=== PATIENT | female | born 1990 | race Asian ===

== ENCOUNTER 2023-07-05 13:50 | Emergency (ER) | payer MEDICAID, SELFPAY ==
[2023-07-05 13:51] VITALS: BP 130/83; PULSE 108; RESP 16; TEMP 35.7; O2SAT 98; BMI 35.0
--- NOTE | 2023-07-05 15:53 | EX.ED.DYSGE1 ---
HPI History of Present Illness Chief Complaint: Abd Pain PFSH PFSH Home Medications ibuprofen 600 mg tablet 600 mg PO 4X/DAY PRN pain or cramping #30 tabs 04/09/16 [Rx Last Taken Unknown] oxycodone 5 mg tablet 5 - 10 mg (1 - 2 x 5 mg) PO Q4H PRN PRN Mod-Severe Pain (4-10/10) ##30 04/09/16 [Rx Last Taken Unknown] vits,calcium no.78-iron fumarate-folic acid 29 mg-1 mg tablet (Prenatabs FA) 1 tab PO DAILY ##30 04/09/16 [Rx Last Taken Unknown] omeprazole 20 mg capsule,delayed release 20 mg PO DAILY #30 caps 07/05/23 [Rx Last Taken Unknown] ondansetron 4 mg disintegrating tablet 4 mg PO Q8H PRN PRN Nausea #10 tabs 07/05/23 [Rx Last Taken Unknown] Allergy/AdvReac Type Severity Reaction Status Date / Time No Known Allergies Allergy Verified 07/05/23 13:51 Surgical History (Updated 07/05/23 @ 16:05 by Nicolette Bragg) Hx of cholecystectomy Social History Smoking Status: Current some day smoker tobacco type: cigarettes EXAM Physical Exam Const Vital Signs: 07/05/23 13:51 07/05/23 18:00 07/05/23 19:44 Temperature 96.2 F L 97.2 F L Temperature Source Temporal Pulse Rate 108 H 80 Respiratory Rate 16 18 16 Blood Pressure 130/83 H Blood Pressure Mean 98 Pulse Ox 98 Oxygen Delivery Method Room Air Room Air MDM MDM MDM Narrative Medical decision making narrative: HISTORY OF PRESENT ILLNESS: 32 F female presents with epigastric abdominal pain for the last 10 hours. Notes history of cholecystectomy but states this pain feels similar to prior gallbladder pain. Last bowel movement 2 hours prior to arrival. Notes history of hysterectomy and cholecystectomy. Denies any vomiting but notes nausea and epigastric abdominal pain. Denies chest pain or shortness of breath. Denies any bleeding diathesis. Denies any urinary complaints REVIEW OF SYSTEMS: Pertinent positives: Abdominal pain Pertinent negatives: Chest pain, shortness breath, urinary complaint PHYSICAL EXAM: Nursing triage notes reviewed, Vital signs reviewed Constitutional: please see mdm HENT: MMM Eyes: Pupils equal round and reactive to light, Extraocular muscles intact Neck: No stridor, no JVD, full neck ROM Lungs: Clear to auscultation, No wheezing or rales. No increased work of breathing, no conversational dyspnea, no accessory muscle use, no nasal flaring. No respiratory distress noted Heart: Regular rate and rhythm, No murmurs, No rubs and No gallops, 2+ distal pulses (radial, femoral, posterior tibial) in all extremities Abdomen: Soft, epigastric tenderness but no rigidity, distention, rebound or guarding, no obvious peritoneal signs, no palpable pulsatile abdominal masses, no auscultated abdominal bruit : No CVAT Extremities: No edema Neuro: No focal neurological deficits, cranial nerves II through XII intact, 5/5 strength in all extremities. Intact sensation to light touch in all extremities, 2+ reflexes bilateral patella tendons. Normal gait. No ataxia. Skin: No rash or lesions noted MEDICAL DECISION MAKING: Chief Complaint: Abdominal pain External records reviewed: No recent advanced imaging the abdomen or pelvis noted in [facility] Factors affecting care: Status post cholecystectomy Social determinants of health: Denies alcohol use History obtained from others: Patient's friend Consults: none MDM Narrative: Patient denies history hemodynamically stable, mildly tachycardic otherwise afebrile. Abdominal exam is overall benign with no obvious peritoneal signs. She did have epigastric TTP I considered the following differential diagnosis: AAA, small bowel obstruction, abdominal perforation, appendicitis, pancreatitis, hepatobiliary pathology (acute cholecystitis), mesenteric ischemia, pathology (ie nephrolithiasis, pyelonephritis), ACS, pneumonia, Lower suspicion for gallstone pancreatitis or alcohol-induced pancreatitis given lack of having a gallbladder lack of recent alcohol use I did obtain a broad lab workup to further elucidate etiology patient complaints. I gave symptomatic treatment in the form of IV narcotics, IV fluids, Zofran and Pepcid ALL IMAGES (IF OBTAINED) HAVE BEEN PERSONALLY REVIEWED AND INTERPRETED BY MYSELF. CBC with leukocytosis however this is consistent with prior studies, no anemia or thrombocytopenia noted EKG with normal sinus rhythm, normal axis, no intervals, no STEMI BMP without evidence of significant electrolyte abnormalities, no anion gap, no acute kidney injury. LFTs show no evidence of hepatobiliary pathology. High-sensitivity troponin is negative, no evidence of myocardial ischemia Lipase is wnl indicating no pancreatic inflammation. EKG with normal sinus rhythm, normal axis, normal intervals, no ST or T wave changes to suggest ischemia. No evidence of WPW, Brug[place], ARVD. I have personally reviewed the patient's chest x-ray. Chest x-ray is unremarkable for pulmonary edema, pneumothorax, pneumonia or focal cardiopulmonary abnormality. Repeat abdominal exam is benign. Low suspicion for acute life-threatening etiology including gallbladder obstruction, pancreatitis, hepatobiliary obstruction, ACS, perforation, obstruction or other acute surgical pathology of the abdomen. Is no evidence of , ectopic or UTI or pyelonephritis at this time. Patient is poor for outpatient follow-up with instructions to take omeprazole to follow-up with gastroenterology The patient and/or family, caregivers express understanding. The patient and/or family, caregivers agrees with the plan. Shared decision making: I will have a discussion with the patient and or visitors regarding risk/benefits of further testing or admission. They will be made aware of of the risk/benefits inherent in this decision they will be given the opportunity to voice understanding. Total critical care time today provided was at least 0 minutes. This excludes separately billable procedures. Critical care time (if documented) is secondary to the patient having high probability of clinically significant/life threatening deterioration in the patient's condition which required my urgent intervention. Impression: 1. Epigastric abdominal pain 2. Leukocytosis (baseline, stable) Dispo: Discharge home Lab Data Labs: Laboratory Results - last 24 hr 07/05/23 07/05/23 16:00 16:34 WBC 11.9 H RBC 5.05 Hgb 15.4 H Hct 45.8 MCV 90.7 MCH 30.5 MCHC 33.6 RDW Std Deviation 36.4 RDW Coeff of Swetha 11.0 L Plt Count 223 MPV 10.7 Immature Gran % (Auto) 0.300 Neut % (Auto) 89.0 H Lymph % (Auto) 4.9 L [place] % (Auto) 4.7 Eos % (Auto) 0.6 Baso % (Auto) 0.5 Absolute Neuts (auto) 10.6 H Absolute Lymphs (auto) 0.59 L Nucleated RBC % 0 Differential Comment SCANNED Sodium 139 Potassium 3.9 Chloride 107 Carbon Dioxide 24.0 Anion Gap 8 BUN 15 Creatinine 0.80 Estim Creat Clear Calc 109.32 Est GFR (MDRD) Af Amer 106 Est GFR (MDRD) Non-Af 88 BUN/Creatinine Ratio 18.8 Glucose 107 H Calcium 8.7 Total Bilirubin 0.80 Direct Bilirubin 0.27 AST 31 ALT 65 H Alkaline Phosphatase 86 Troponin I High Sens 3 Total Protein 8.0 Albumin 3.6 Globulin 4.4 H Lipase 25 Urine Color Yellow Urine Clarity Clear Urine pH 5.0 Ur Specific Newborn 1.020 Urine Protein 30 H Urine Glucose (UA) Normal Urine Ketones 5 H Urine Occult Blood 25 H Urine Nitrite Negative Urine Bilirubin 1 H Urine Urobilinogen Normal Ur Leukocyte Esterase 25 H Urine RBC 0-5 SEEN Urine WBC 0-5 SEEN Ur Squamous Epith Cells 0-5 SEEN Urine Bacteria 0 SEEN Urine Mucus 0 SEEN Urine Test Negative Radiography Diagnostic Testing: Clinical Impression(s) from Imaging Studies Chest X-Ray 07/05/23 16:22 IMPRESSION: No acute cardiopulmonary disease. Electronically Signed: Kenna Cline MD at 16:52 EST , Discharge Plan Triage Chief Complaint: Abd Pain ED Provider: Prashanth León Dx/Rx/DC Orders Instructions: ED Abdominal Pain Unkn Cause Fem Prescriptions: New omeprazole 20 mg capsule,delayed release(DR/EC) 20 mg PO DAILY Qty: 30 0RF ondansetron 4 mg tablet,disintegrating 4 mg PO Q8H PRN PRN (Reason: Nausea) Qty: 10 0RF No Action oxycodone 5 MG tablet 5 - 10 mg PO Q4H PRN PRN (Reason: Mod-Severe Pain (4-10/10)) Qty: 30 0RF [id number] [Prenatabs FA] 1 TABLET tablet 1 tab PO DAILY Qty: 30 6RF ibuprofen 600 MG tablet 600 mg PO 4X/DAY PRN (Reason: pain or cramping) Qty: 30 2RF Primary Care Provider: Trae Paul Referrals: Trae Paul MD [Primary Care Provider] - Friend,DO Teodoro [Med Staff - Active Staff] - Activity Restrictions/Additional Instructions: Thank you for trusting us with your care today! Please take Tylenol (2 pills, 650 mg), ibuprofen (2 pills, 400 mg) every 6 hours as needed for pain and fever control. Please take Prilosec as prescribed. Please take Zofran as needed for nausea and vomiting Please return to the emergency department if your symptoms change or worsen. Please follow with your primary care physician for further outpatient evaluation and management. Disposition Disposition: Home, Self Care Discharge Date/Time: 07/05/23 19:50 Capacity Legal [employer] Operator Reflex Medical hold order details:: IF a medical hold is selected below, a suggested order for a MEDICAL HOLD will reflex upon signing the document. Next of kin: [place] law dictates a PRIORITY LIST for identifying legal decision-maker/legal next of kin in the following order (LNOK): 1st: The patient?s legal guardian, if any 2nd: The patient's spouse (if status is questionable, consult Risk Management) 3rd: The patient?s adult child(wesley) (majority, if multiple children) 4th: The patient?s parents 5th: The patient?s adult siblings (majority, if multiple children siblings)
--- NOTE | 2023-07-05 16:22 | RAD_ITS ---
STUDY: X-RAY CHEST REASON FOR EXAM: Female, 32 years old. epigastric abdominal pain TECHNIQUE: Single AP portable view of the chest. COMPARISON: None. FINDINGS: The lungs are clear and expanded. There is no demonstrated pleural abnormality. Normal size heart. Normal mediastinum and davon. Normal visualized pulmonary arteries. Normal visualized aortic arch and descending thoracic aorta. Scoliosis of thoracic spine with convexity to the right. Normal visualized ribs, clavicles, and shoulders. There is no demonstrated abnormality of the visualized soft tissue structures of the upper abdomen. RAD/Chest 1 View (Portable) IMPRESSION: No acute cardiopulmonary disease. Electronically Signed: Kenna Cline MD at 16:52 EST ,
--- NOTE | 2023-07-05 16:22 | EKG12_ITS ---
Test Reason : ABN LABS Blood Pressure : / mmHG Vent. Rate : 080 BPM Atrial Rate : 080 BPM P-R Int : 130 ms QRS Dur : 084 ms QT Int : 366 ms P-R-T Axes : 046 076 050 degrees QTc Int : 422 ms Normal sinus rhythm Normal ECG Confirmed by LAUREN DORSEY, IQRA ([id number]), assignment desk editor [facility] ([id number]) on 07/07/2023 9:18:55 AM Referred By: Confirmed By:IQRA AGUILAR MD
--- NOTE | 2023-07-05 16:24 | NURSING ---
NO OLD EKGS
[2023-07-05 16:38] LABS: Absolute Lymphocyte Count 0.59 X10^3/uL (0.83-4.51); Absolute Neutrophil Count 10.6 X10^3/uL (2.0-7.7); Basophil# 0.06 X10^3/uL; Basophil% 0.5 % (0-1); Eosinophil# 0.07 X10^3/uL; Eosinophils% 0.6 % (0-5); Hematocrit 45.8 % (37-47); Hemoglobin 15.4 g/dL (12.0-15.0); Lymphocyte # 0.59 X10^3/ul (0.83-4.51); Lymphocyte % 4.9 % (19-41); Mean Corp Hgb Conc 33.6 g/dL (32-36); Mean Corpuscular Hgb 30.5 pg (27.0-32.0); Mean Corpuscular Volume 90.7 fL (81-99); Mean Platelet Vol. 10.7 fl (6.2-12.0); Monocyte# 0.56 X10^3/uL; Monocyte% 4.7 % (0-10); NRBC Flagged by Analyzer 0 % (0-5); Neutrophil # 10.62 X10^3/uL (2.7-7.7); POSITIVE DIFFERENTIAL YES; Platelet Count 223 K/mm3 (150-450); RBC Distribution Width SD 36.4 fl (35.1-43.9); Red Blood Count 5.05 M/mm3 (4.2-5.4); White Blood Count 11.9 K/mm3 (4.4-11.0)
[2023-07-05] MEDS: 0.9% Normal Saline (1000mL) 1,000 ML 1000 ML IV (16:38)
[2023-07-05] MEDS: Ondansetron 4 MG/2 ML Vial IV (16:38)
[2023-07-05] MEDS: Morphine 4 MG/ML Syringe IV (16:38)
[2023-07-05 16:42] LABS: Bacteria 0 SEEN /hpf (None Seen); Mucous, Urine 0 SEEN /hpf (<or=2+)
--- OUTSIDE RECORDS SUMMARY | 2023-07-05 16:42 | XMS RPT_ITS | CCD ---
Author Name Unknown Address [address] [place] [address] Organization [facility] Care Team Providers Care Power Supply Engineer Name Role Phone Mikael Paul MD Primary Care Provider MIKAEL PAUL Attending MIKAEL Bach Primary Care UnavailMARKY Carrera Attending MIKAEL Chandler Primary Care UnavailMIKAEL Charles Attending MIKAEL Bach Primary Care Unavailab MARKY Sullivan Referring MIKAEL Chandler Primary Care Unavailab le Medications Current Medications Medication Drug Class(es) Dates Sig (Normalized) Sig (Original) amoxicillin 875 mg / clavulanate 125 mg oral tablet (1 source) Penicillin-class Antibacterial Start: 01-02-2022 End: 01-12-2022 take 1 tablet by mouth twice daily amoxicillin-clav ulanic acid (AUGMENTIN) 875-125 mg per tablet Take 1 tablet by mouth twice daily for 10 days. 20 tablet 0 01/02/2022 01/12/2022 Active Completed/Discontinued Medications Medication Drug Class(es) Dates Sig (Normalized) Sig (Original) Levonorgestrel (9 sources) Progestin, Progestin-containing Intrauterine Device End: 06-23-2022 levonorgestrel (MIRENA INTRAUTERINE) by INTRAUTERINE route. 0 06/23/2022 Discontinued Problems Problem Classification Problem Date Documented Date Episodic/Chronic Attention-deficit, conduct, and disruptive behavior disorders (20 sources) Adult attention deficit hyperactivity disorder ; Translations: [Attention-deficit hyperactivity disorder, unspecified type] Chronic Attention-deficit, conduct, and disruptive behavior disorders (1 source) Attention-deficit hyperactivity disorder, unspecified type; Translations: [Adult ADHD] Onset: 12-28-2022 Chronic Cardiac dysrhythmias (1 source) Tachycardia; Translations: [Tachycardia, unspecified] Episodic Contraceptive and procreative management (2 sources) Patient encounter status; Translations: [Encounter for other general counseling and advice on contraception] Episodic Disorders of teeth and jaw (1 source) Toothache; Translations: [Other specified disorders of teeth and supporting structures] Episodic Other aftercare (1 source) Drug therapy finding; Translations: [Other shelter (current) drug therapy] Episodic Other nutritional; endocrine; and metabolic disorders (1 source) Obesity caused by energy imbalance; Translations: [Other obesity due to excess calories] 03-30-2023 Chronic Other nutritional; endocrine; and metabolic disorders (3 sources) Obesity; Translations: [Obesity, unspecified] Onset: 03-30-2023 03-30-2023 Chronic Other nutritional; endocrine; and metabolic disorders (1 source) Other obesity due to excess calories; Translations: [Class 1 obesity due to excess calories without serious comorbidity with body mass index (BMI) of 34.0 to 34.9 in adult] Onset: 03-30-2023 Chronic Other nutritional; endocrine; and metabolic disorders (1 source) Body mass index (BMI) 34.0-34.9, adult; Translations: [Class 1 obesity due to excess calories without serious comorbidity with body mass index (BMI) of 34.0 to 34.9 in adult] Onset: 03-30-2023 Chronic Other screening for suspected conditions (not mental disorders or infectious disease) (2 sources) Cancer cervix screening status; Translations: [Encounter for screening for malignant neoplasm of cervix] Onset: 03-30-2023 03-30-2023 Episodic Screening and history of mental health and substance abuse codes (20 sources) Tobacco use and exposure - finding; Translations: [Personal history of nicotine dependence] 01-05-2020 Episodic Results Test Name Value Interpretation Reference Range Facil ity Vital Signs Date Time Vital Sign Value Performing Clinician Chuck brock 03-30-2023 09:20-0400 Heart rate 92 /min Mikael Paul MD Work Phone: [facility] 03-30-2023 08:44-0400 Body weight 90.17 kg Mikael Paul MD Work Phone: [facility] 03-30-2023 08:44-0400 Diastolic blood pressure 76 mm[Hg] Mikael Paul MD Work Phone: [facility] 03-30-2023 08:44-0400 Respiratory rate 16 /min Mikael Paul MD Work Phone: [facility] 03-30-2023 08:44-0400 SaO2% (BldA) [Mass fraction] 96 % Mikael Paul MD Work Phone: [facility] 03-30-2023 08:44-0400 Systolic blood pressure 124 mm[Hg] Mikael Paul MD Work Phone: [facility] 12-28-2022 09:03-0400 Body height 162.6 cm Marky Podlogar INTERIOR HORTICULTURIST[employer] Work Phone: [facility] 12-28-2022 09:03-0400 Body weight 91.17 kg Marky Podlogar INTERIOR HORTICULTURIST[employer] Work Phone: [facility] 12-28-2022 09:03-0400 Diastolic blood pressure 78 mm[Hg] Marky Podlogar INTERIOR HORTICULTURIST[employer]ER Work Phone: [facility] 12-28-2022 09:03-0400 Heart rate 98 /min Marky Podlogar INTERIOR HORTICULTURIST[employer] Work Phone: [facility] 12-28-2022 09:03-0400 Respiratory rate 16 /min Marky Podlogar INTERIOR HORTICULTURIST[employer] Work Phone: [facility] 12-28-2022 09:03-0400 Systolic blood pressure 118 mm[Hg] Marky Podlogar INTERIOR HORTICULTURIST[employer]ER Work Phone: [facility] 06-23-2022 11:22-0500 Heart rate 100 /min Mikael Paul MD Work Phone: [facility] 06-23-2022 10:47-0500 Body weight 88.91 kg Mikael Paul MD Work Phone: [facility] 06-23-2022 10:47-0500 Diastolic blood pressure 74 mm[Hg] Mikael Paul MD Work Phone: [facility] 06-23-2022 10:47-0500 Respiratory rate 16 /min Mikael Paul MD Work Phone: [facility] 06-23-2022 10:47-0500 SaO2% (BldA) [Mass fraction] 95 % Mikael Paul MD Work Phone: [facility] 06-23-2022 10:47-0500 Systolic blood pressure 122 mm[Hg] Mikael Paul MD Work Phone: [facility] 01-02-2022 16:44-0400 Body temperature 98.2 [degF] Mikael Paul MD Work Phone: [facility] 01-02-2022 16:44-0400 Body weight 88.27 kg Mikael Paul MD Work Phone: [facility] 01-02-2022 16:44-0400 Diastolic blood pressure 72 mm[Hg] Mikael Paul MD Work Phone: [facility] 01-02-2022 16:44-0400 Heart rate 97 /min Mikael Paul MD Work Phone: [facility] 01-02-2022 16:44-0400 Respiratory rate 16 /min Mikael Paul MD Work Phone: [facility] 01-02-2022 16:44-0400 SaO2% (BldA) [Mass fraction] 97 % Mikael Paul MD Work Phone: [facility] 01-02-2022 16:44-0400 Systolic blood pressure 130 mm[Hg] Mikael Paul MD Work Phone: [facility] Encounters Encounter Date Encounter Type Care Provider Facility Start: 04-30-2023 Telephone encounter Trae Paul MD Work Phone: [facility] Procedures Date Procedure Procedure Detail Performing Clinician Start: 06-23-2022 Urine test visual color cmprsn meths Mikael Paul MD Work Phone: Start: 06-23-2022 Drug tst prsmv instr mnt chem analyzers pr date Mikael Paul MD Work Phone: Start: 12-30-2020 Adult depression screening assessment Mikael Paul MD Work Phone: Plan of Treatment Date Care Activity Detail Author Start: 03-30-2024 Covid-19 Vaccine (#1) Covid-19 Vacci ne (#1) [facility] Immunizations Immunization Date Immunization Notes Care Provider Fa cility 11-12-2018 pneumococcal polysaccharide vaccine, 23 valent Mikael Paul MD Work Phone: [facility] 04-11-2016 influenza, seasonal, injectable Mikael Paul MD Work Phone: [facility] 04-11-2016 influenza virus vaccine, unspecified formulation Marky Lux INTERIOR HORTICULTURIST[employer] Work Phone: [facility] 04-09-2016 influenza, seasonal, injectable, preservative free Mikael Paul MD Work Phone: [facility] Work Phone: Payers Date Payer Category Payer Medicaid [id number] 2019 Medicaid [facility] MEDICAID [facility] [employer] MEDICAID [id number] 2019-Present [phone] [address] [place] [address] Medicaid [id number] 2019 Medicaid [id number] 2019 Medicaid [id number] Social History Date Type Detail Facility Start: 01-05-2020 End: 03-30-2023 Tobacco smoking status NHIS Ex-smoker [facility] Work Phone: Start: 01-05-2020 End: 03-30-2023 Cigarettes smoked current (pack per day) - Reported 0.5 [facility] Start: 01-05-2020 End: 03-30-2023 Tobacco use and exposure Smokeless tobacco non-user [facility] Work Phone: Start: 03-25-2021 End: 03-30-2023 Alcohol intake Current drinker of alcohol (finding) [facility] Start: 06-15-2019 End: 06-23-2022 History SDOH Alcohol Frequency 2 [facility] Start: 06-15-2019 End: 06-23-2022 History SDOH Alcohol Std Drinks 1 [facility] Start: 11-12-2018 History SDOH Alcohol Comment rarely [facility] Start: 06-15-2019 End: 06-23-2022 History SDOH Social Connections Phone 5 [facility] Start: 01-04-2020 End: 06-23-2022 History SDOH Social Connections Get Together 3 [facility] Start: 06-15-2019 End: 06-23-2022 History SDOH Social Connections Living 8 [facility] Start: 06-15-2019 History SDOH Physica l Activity MPS 6 [facility] Start: 01-04-2020 Education 15 [facility] Start: 11-12-2018 End: 06-23-2022 Tobacco Comment up to 3-5 cigarettes per day [facility] Start: 1990 Sex Assigned At Not on file C [facility] Start: 12-23-2021 End: 01-02-2022 Exposure to SARS-CoV-2 (event) Not sure [facility] End: 06-21-2019 History of tobacco use Current smoker [facility] Work Phone: End: 06-21-2019 History of tobacco use Cigarette Smoker [facility] Work Phone: Start: 06-23-2022 History SDOH Physica l Activity DPW 4 [facility] Start: 06-23-2022 End: 03-30-2023 Social connection and isolation panel [facility] Do you belong to any clubs or organizations such as hindu groups, unions, fraternal or athletic groups, or school groups? Yes [facility] Are you now , , , , never or living with a partner? Living with partner [facility] How often to you hav e a drink containing alcohol? Monthly or less [facility] How many standard dr inks containing alcohol do you have on a typical day? 1 or 2 [facility] How often do you hav e 6 or more drinks on 1 occasion? Never [facility] How hard is it for y ou to pay for the very basics like food, housing, medical care, and heating Not hard at all [facility] Do you feel stress - tense, restless, nervous, or anxious, or unable to sleep at night because your mind is troubled all the time - these days [OSQ] Not at all [facility] (I/We) worried wheth er (my/our) food would run out before (I/we) got money to buy more. Never true [facility] In the past 12 month s, was there a time when you were not able to pay the mortgage or rent on time? No [facility] Clinical Notes 10-27-2021 to 05-03-2023 Telephone Encounter - Ligia Mccarthy Ma - 05/03/2023 9:43 AM ESTTelephone Encounter - Mikael Paul MD - 05/03/2023 8:02 AM ESTTelephone Encounter - Mila Choi - 04/30/2023 2:52 PM EST Note Date & Type Note Facility 05-03-2023 Miscellaneous Notes Pt notified via [employer] Rx has been sent in. Ligia Mccarthy Ma PDMP website checked and validated. All prescriptions have been APPROPRIATELY filled. No suspicious activity was identified. 05/03/2023 by Mikael Paul MD Patient last visit with PCP 03/30/23 Follow up appointment scheduled none Tammy Guadarrama Ma Sienna Joyce is calling Mikael Paul MD today to request medication lisdexamfetamine (VYVANSE) 60 mg capsule . Patient has been identified by name and birthdate. Duration of symptoms: N/A Person calling: self Call patient at: on cell [phone] (home) [phone] (cell) Was an appointment scheduled: No Closing statement: Results or non-symptom based questions: Thank you for calling [facility], your call will be returned within the next business day. Mila Choi documented in this encounter [facility] 04-14-2023 Miscellaneous Notes Pt notified of pcp's message with verbalized understanding. Ashely Chung LPN PDMP website checked and validated. All prescriptions have been APPROPRIATELY filled. No suspicious activity was identified. 04/14/2023 by Mikael Paul MD Increase Adderall XR to 40 mg daily as prescribed. Call with update in 2 weeks or sooner with side effects. Spoke with pt and she would like to have the medication increased. She has called multiple pharmacies and they still do not have the mediation. Mila Kelley LPN We could increase the dosage if this is not working well for her. Any idea if pharmacies have vyvanse back in stock since that worked well for her previously? Patient Comment: This dose seemed to work better. I am still losing focus on tasks in the afternoon though. I m not sure if a higher dose or a smaller second dose would resolve that or not. Requested Prescriptions Pending Prescriptions Disp Refills amphetamine-dextroamphetamine XR (ADDERALL XR) 30 mg capsule 14 capsule 0 Sig: Take 1 capsule by mouth once daily for 14 days. Date of last office visit in primary care: 03/30/2023 Date of next office visit in primary care: Visit date not found Please advise. Thank you. Maria Victoria Fine LPN. documented in this encounter [facility] 03-30-2023 Note HNO ID: [id number] Author: Mikael Paul MD Service: ? Author Type: Physician Type: Progress Notes Filed: 03/30/2023 9:32 AM Note Text: Chief Complaint Patient presents with: Physical HPI Sienna Joyce is a 32 year old female who presents here today for annual physical. ADD: Current Treatment: Adderall XR 20 mg. Switched from Vyvanse due to shortage. Feels treatment is working well: Helps from 6am-1pm and then wears. Has trouble with concentration and completing tasks. Weight loss: No. Insomnia: No. GASTROENTEROLOGY complaints: No. Tremor: No. Mood disorder: Yes. More irritable but thinks this is related to trouble concentration. Chest pain/Palpitations: No. Aware of risks associated with controlled substance use: Yes. Hx of misuse/abuse/diversion of meds: No. Following up with Susi Garcia for acne. Last OV about 1-2 months ago which is help with her symptoms. Walking 2-4 miles per day for exercise. Working on low carb diet. BMI in obesity range. Does not have weight loss goal. Last pap smear was about 18 months ago with GAME OPERATOR at [facility]. Reportedly normal. Not sure about HPV. Needs referral to new GAME OPERATOR. PHQ-2 / Depression screen He in the past two weeks denies having felt down, depressed, hopeless or with little interest or pleasure in doing things. Believes her last tetanus was during in 2016. Refusing vaccinations today. Past medical history, appointments, medications, allergies reviewed. Previous Medical History PAST MEDICAL HISTORY Diagnosis Date ADHD (attention deficit hyperactivity disorder) History of tobacco abuse IUD (intrauterine device) in place Mirena 08/2016, GAME OPERATOR [facility] PTSD (post-traumatic stress disorder) Scoliosis Previous Surgical History PAST SURGICAL HISTORY Procedure Laterality Date SECTION HX 2016 LAPAROSCOPIC CHOLECYSTECTOMY 2015 Family History FAMILY HISTORY Adopted: Yes Patient Allergies ALLERGIES No Known Allergies Current Medications Current Outpatient Medications on File Prior to Visit Medication Sig amphetamine-dextroamphetamine XR (ADDERALL XR) 20 mg capsule Take 1 capsule by mouth once daily for 14 days. norgestimate 0.25 mg-ethinyl estradiol 35 mcg (SPRINTEC) 0.25-35 mg-mcg per tablet Take 1 tablet by mouth once daily. spironolactone (ALDACTONE) 100 mg tablet Take 1 tablet by mouth once daily. No current facility-administered medications on file prior to visit. Social History Social History Tobacco Use Smoking status: Former Packs/day: 0.50 Years: 10.00 Additional pack years: 0.00 Total pack years: 5.00 Types: Cigarettes Smokeless tobacco: Never Tobacco comments: up to 3-5 cigarettes per day Substance Use Topics Alcohol use: Yes Comment: rarely Drug use: No Review of Symptoms REVIEW OF SYSTEMS GENERAL: No weight loss, malaise or fevers HEENT: Negative for frequent or significant headaches, No changes in hearing or vision, no nose bleeds or other nasal problems NECK: Negative for lumps, goiter, pain and significant neck swelling RESPIRATORY: Negative for cough, hemoptysis, wheezing, COPD, dyspnea or shortness of breath CARDIOVASCULAR: Negative for chest pain, leg swelling, hypertension, CHF or palpitations GI: No nausea, vomiting, or diarrhea : No history of dysuria, frequency or incontinence GAME OPERATOR: Negative for abnormal vaginal bleeding, abnormal vaginal discharge MUSCULOSKELETAL: Negative for joint pain or swelling, back pain or muscle pain SKIN: Negative for lesions, rash, and itching PSYCH: Negative for sleep disturbance, mood disorder and recent psychosocial stressors HEMATOLOGY/LYMPHOLOGY: Negative for prolonged bleeding, bruising easily or swollen nodes ENDOCRINE: Negative for cold or heat intolerance, polyuria, polydipsia and goiter NEURO: No history of headaches, syncope, paralysis, seizures or tremors EXAM: BP 124/76 Pulse 103 Resp 16 Wt 90.2 kg (198 lb 12.8 oz) LMP 03/27/2023 (Approximate) SpO2 96% BMI 34.12 kg/m? General Appearance: Well appearing, alert, in no acute distress, well-hydrated, well nourished.. Skin: Skin color, texture, turgor normal, no suspicious rashes or lesions. Head: Normocephalic, no masses, lesions, tenderness or abnormalities. Eyes: Anicteric sclera. Pupils are equally round and reactive to light. Extraocular movements are intact. . Ears: External ears normal, canals clear. Oropharynx: Lips, mucosa, and tongue normal, teeth and gums normal, oropharynx normal. Neck: Supple, no adenopathy; thyroid symmetric, normal size, no bruits. Lungs: Lungs clear to auscultation. No wheezing, rhonchi, rales.. Heart: RRR without murmur, gallop, or rubs. No ectopy. Abdomen: Normal abdominal exam, Abdomen soft, non-tender. Bowel sounds normal. No masses, organomegaly. Extremities: No deformities, edema, skin discoloration, clubbing or cyanosis. Good capillary refill. . Muscul (more content not included)... [facility] 03-30-2023 History of Presen t illness Narrative Chief Complaint Patient presents with: Physical HPI Sienna Joyce is a 32 year old female who presents here today for annual physical. ADD: Current Treatment: Adderall XR 20 mg. Switched from Vyvanse due to shortage. Feels treatment is working well: Helps from 6am-1pm and then wears. Has trouble with concentration and completing tasks. Weight loss: No. Insomnia: No. GASTROENTEROLOGY complaints: No. Tremor: No. Mood disorder: Yes. More irritable but thinks this is related to trouble concentration. Chest pain/Palpitations: No. Aware of risks associated with controlled substance use: Yes. Hx of misuse/abuse/diversion of meds: No. Following up with Susi Garcia for acne. Last OV about 1-2 months ago which is help with her symptoms. Walking 2-4 miles per day for exercise. Working on low carb diet. BMI in obesity range. Does not have weight loss goal. Last pap smear was about 18 months ago with GAME OPERATOR at [facility]. Reportedly normal. Not sure about HPV. Needs referral to new GAME OPERATOR. PHQ-2 / Depression screen He in the past two weeks denies having felt down, depressed, hopeless or with little interest or pleasure in doing things. Believes her last tetanus was during in 2015. Refusing vaccinations today. Past medical history, appointments, medications, allergies reviewed. Previous Medical History PAST MEDICAL HISTORY Diagnosis Date ADHD (attention deficit hyperactivity disorder) History of tobacco abuse IUD (intrauterine device) in place Mirena 08/2016, GAME OPERATOR [facility] PTSD (post-traumatic stress disorder) Scoliosis Previous Surgical History PAST SURGICAL HISTORY Procedure Laterality Date SECTION HX 2016 LAPAROSCOPIC CHOLECYSTECTOMY 2014 Family History FAMILY HISTORY Adopted: Yes Patient Allergies ALLERGIES No Known Allergies Current Medications Current Outpatient Medications on File Prior to Visit Medication Sig amphetamine-dextroamphetamine XR (ADDERALL XR) 20 mg capsule Take 1 capsule by mouth once daily for 14 days. norgestimate 0.25 mg-ethinyl estradiol 35 mcg (SPRINTEC) 0.25-35 mg-mcg per tablet Take 1 tablet by mouth once daily. spironolactone (ALDACTONE) 100 mg tablet Take 1 tablet by mouth once daily. No current facility-administered medications on file prior to visit. Social History Social History Tobacco Use Smoking status: Former Packs/day: 0.50 Years: 10.00 Additional pack years: 0.00 Total pack years: 5.00 Types: Cigarettes Smokeless tobacco: Never Tobacco comments: up to 3-5 cigarettes per day Substance Use Topics Alcohol use: Yes Comment: rarely Drug use: No Review of Symptoms REVIEW OF SYSTEMS GENERAL: No weight loss, malaise or fevers HEENT: Negative for frequent or significant headaches, No changes in hearing or vision, no nose bleeds or other nasal problems NECK: Negative for lumps, goiter, pain and significant neck swelling RESPIRATORY: Negative for cough, hemoptysis, wheezing, COPD, dyspnea or shortness of breath CARDIOVASCULAR: Negative for chest pain, leg swelling, hypertension, CHF or palpitations GI: No nausea, vomiting, or diarrhea : No history of dysuria, frequency or incontinence GAME OPERATOR: Negative for abnormal vaginal bleeding, abnormal vaginal discharge MUSCULOSKELETAL: Negative for joint pain or swelling, back pain or muscle pain SKIN: Negative for lesions, rash, and itching PSYCH: Negative for sleep disturbance, mood disorder and recent psychosocial stressors HEMATOLOGY/LYMPHOLOGY: Negative for prolonged bleeding, bruising easily or swollen nodes ENDOCRINE: Negative for cold or heat intolerance, polyuria, polydipsia and goiter NEURO: No history of headaches, syncope, paralysis, seizures or tremors EXAM: BP 124/76 Pulse 103 Resp 16 Wt 90.2 kg (198 lb 12.8 oz) LMP 03/27/2023 (Approximate) SpO2 96% BMI 34.12 kg/m General Appearance: Well appearing, alert, in no acute distress, well-hydrated, well nourished.. Skin: Skin color, texture, turgor normal, no suspicious rashes or lesions. Head: Normocephalic, no masses, lesions, tenderness or abnormalities. Eyes: Anicteric sclera. Pupils are equally round and reactive to light. Extraocular movements are intact. . Ears: External ears normal, canals clear. Oropharynx: Lips, mucosa, and tongue normal, teeth and gums normal, oropharynx normal. Neck: Supple, no adenopathy; thyroid symmetric, normal size, no bruits. Lungs: Lungs clear to auscultation. No wheezing, rhonchi, rales.. Heart: RRR without murmur, gallop, or rubs. No ectopy. Abdomen: Normal abdominal exam, Abdomen soft, non-tender. Bowel sounds normal. No masses, organomegaly. Extremities: No deformities, edema, skin discoloration, clubbing or cyanosis. Good capillary refill. . Musculoskeletal: No joint swelling, deformity, or tenderness. Peripheral Pulses: Normal. Lymph Nodes: No cervical lymphadenopathy and No supraclavicular lymphadenopathy. Health Maintenance List Hepatitis B Vaccine(1 of 3 - 3-dose series) Never done Covid-19 Vaccine(1) Never done Hepatitis C Screening Never done HIV Screening Never done DTaP,Tdap,Td Vaccine(1 - Tdap) Never done Pap Testing Never done HPV Testing Never done Depression Assessment Never done Influenza Vaccine(1) due on 02/19/2023 HPV Vaccine Aged Out Data reviewed Component Latest Ref Rng & Units 03/26/2023 WBC 3.70 - 11.00 k/uL 5.92 RBC 3.90 - 5.20 m/uL 4.77 Hemoglobin 11.5 - 15.5 g/dL 14.8 Hematocrit 36.0 - 46.0 % 43.9 MCV 80.0 - 100.0 fL 92.0 MCH 26.0 - 34.0 pg 31.0 MCHC 30.5 - 36.0 g/dL 33.7 RDW-CV 11.5 - 15.0 % 11.6 Platelet Count 150 - 400 k/uL 229 MPV 9.0 - 12.7 fL 11.2 Neut% % 57.0 Abs Neut (ANC) 1.45 - 7.50 k/uL 3.37 Lymph% % 30.6 Abs Lymph 1.00 - 4.00 k/uL 1.81 [place]% % 8.4 Abs [place] <0.87 k/uL 0.50 Eosin% % 1.7 Abs Eosin <0.46 k/uL 0.10 Baso% % 2.0 Abs Baso <0.11 k/uL 0.12 (H) Immature Gran % % 0.3 IMMATURE GRANS (ABS) <0.10 k/uL <0.03 NRBC /100 WBC 0.0 Absolute nRBC <0.01 k/uL <0.01 DTYPE Auto Protein, Total 6.3 - 8.0 g/dL 7.3 Albumin 3.9 - 4.9 g/dL 4.2 Calcium 8.5 - 10.2 mg/dL 8.9 Bilirubin, Total 0.2 - 1.3 mg/dL 0.2 Alkaline Phosphatase 34 - 123 U/L 59 AST 13 - 35 U/L 20 ALT 7 - 38 U/L 31 Glucose 74 - 99 mg/dL 96 BUN 7 - 21 mg/dL 14 Creatinine 0.58 - 0.96 mg/dL 0.81 Sodium 136 - 144 mmol/L 136 Potassium 3.7 - 5.1 mmol/L 4.2 Chloride 97 - 105 mmol/L 101 CO2 22 - 30 mmol/L 24 Anion Gap 9 - 18 mmol/L 11 eGFR >=60 mL/min/1.73m 98 Cholesterol, Total <200 mg/dL 147 Triglyceride <150 mg/dL 48 HDL Cholesterol >39 mg/dL 67 Non HDL Cholesterol <130 mg/dL 80 Fasting Time hrs 12 VLDL Cholesterol <30 mg/dL 10 TC:HDL Ratio <5.10 2.19 LDL Cholesterol <100 mg/dL 70 LDL:HDL Ratio <2.54 1.04 ASSESSMENT/PLAN: 1. Annual physical exam - ICD9: V70.0, ICD10: Z00.00 (primary diagnosis) - Counseled on healthy diet and regular exercise - Calcium intake with supplements or by diet of 1000 mg/day for under 50, 6749-3813 mg/day for 50+ - Discussed need and benefit for weight loss. BMI 34.12 kg/(m^2) - Depression screening tool completed and reviewed with patient. Based on score and interview, patient is not at risk for depression and recommended no further intervention at this time. - Follow up for annual exam in one year - DEPRESSION SCREENING/ASSESSMENT 2. Class 1 obesity due to excess calories without serious comorbidity with body mass index (BMI) of 34.0 to 34.9 in adult - ICD9: 278.00, V85.34, ICD10: E66.09, Z68.34 Weight decreasing - Behavioral intervention 3. Screening for cervical cancer - ICD9: V76.2, ICD10: Z12.4 Referral to [facility] for routine cervical cancer screening and yearly f/u. - CONSULT TO GYNECOLOGY 4. Adult ADHD - ICD9: 314.01, ICD10: F90.9 Uncontrolled. Increase Adderall XR to 30 mg. If vyvanse back in stock, will resume previous dosage instead. - DEXTROAMPHETAMINE-AMPHETAMINE ER 30 MG 24HR CAPSULE,EXTEND RELEASE Mikael Paul MD documented in this encounter [facility] 03-18-2023 Miscellaneous Notes Patient notified. Verbalized understanding. Will increase dosage to 20 mg. 2 week rx sent in. Let us know in about 1-2 weeks if still not working well. Patient reports she was unable to get vyvanse 60 mg d/t shortage, so Refrigeration Technician switched her to adderall 10 mg daily. Reports it is not doing anything to help her and she's been taking it over 2 weeks. Asking if pcp can increase the dose? MAHENDRA Olivera. documented in this encounter [facility] 02-23-2023 Miscellaneous Notes PDMP website checked and validated. All prescriptions have been APPROPRIATELY filled. No suspicious activity was identified. 02/23/2023 by Marky Lux APRN.TIRE LAYER Patient called requesting to transfer the Vyvanse prescription to [facility] in [place] as [facility] does not have it in, it's on back order and does not know when they will get it in. Please advise Patient phones requesting refills as follows: Requested Prescriptions Pending Prescriptions Disp Refills lisdexamfetamine (VYVANSE) 60 mg capsule 30 capsule 0 Sig: Take 1 capsule by mouth once daily for 30 days. MATTI 12/28/2022 NOV 03/30/2023 Please review and advise. Maty Stein LPN documented in this encounter [facility] 02-16-2023 Miscellaneous Notes Addended by: MARKY LUX on: 02/16/2023 08:30 AM Modules accepted: Orders PDMP website checked and validated. All prescriptions have been APPROPRIATELY filled. No suspicious activity was identified. 02/16/2023 by Marky Lux APRN.TIRE LAYER documented in this encounter [facility] 12-28-2022 Note HNO ID: [id number] Author: Marky Lux APRN.TIRE LAYER Service: ? Author Type: Nurse Practitioner Type: Progress Notes Filed: 12/28/2022 9:48 AM Note Text: 12/28/2022 Patient presents with: Established Patient SUBJECTIVE: This is a 32 year old that is here today for Above Complaints. Since last office visit has been in good health without ER visits or hospitalizations. ADD: Current Treatment: Vyvanse Feels treatment is working well: Yes. Weight loss: No. Insomnia: No. GASTROENTEROLOGY complaints: No. Tremor: No. Mood disorder: No. Chest pain/Palpitations: No. Aware of risks associated with controlled substance use: Yes. Hx of misuse/abuse/diversion of meds: Yes. PAST MEDICAL HISTORY Diagnosis Date ADHD (attention deficit hyperactivity disorder) History of tobacco abuse IUD (intrauterine device) in place Mirena 08/2016, [employer] [facility] PTSD (post-traumatic stress disorder) Scoliosis ALLERGIES Patient has no known allergies. MEDICATIONS Current Outpatient Medications Medication Sig spironolactone (ALDACTONE) 100 mg tablet Take 1 tablet by mouth once daily. lisdexamfetamine (VYVANSE) 60 mg capsule Take 1 capsule by mouth once daily for 30 days. norgestimate 0.25 mg-ethinyl estradiol 35 mcg (SPRINTEC) 0.25-35 mg-mcg per tablet Take 1 tablet by mouth once daily. No current facility-administered medications for this visit. Medications and allergies reviewed by this provider. SOCIAL HISTORY Social History Tobacco Use Smoking status: Former Packs/day: 0.50 Years: 10.00 Total pack years: 5.00 Types: Cigarettes Smokeless tobacco: Never Tobacco comments: up to 3-5 cigarettes per day Substance Use Topics Alcohol use: Yes Comment: rarely Drug use: No REVIEW OF SYSTEMS All other reviewed and negative other than HPI. OBJECTIVE: BP 118/78 Pulse 98 Resp 16 Ht 162.6 cm (5' 4 ) Wt 91.2 kg (201 lb) LMP 12/04/2022 (Approximate) BMI 34.50 kg/m? . Vital signs reviewed by this provider. APPEARANCE Well appearing, alert, in no acute distress, well-hydrated, well nourished. HEART RRR with normal S1 and S2, no murmurs, no gallops, no JVD appreciated LUNG clear to auscultation. No wheezes, rhonchi or rales EXTREMITIES Extremities normal, No deformities, No skin discoloration, and No edema SKIN Skin color, texture, turgor normal, no suspicious rashes or lesions to exposed skin HEPATITIS B(1 of 3 - 3-dose series) Never done COVID-19 VACCINE(1) Never done HEPATITIS C SCREENING Never done HIV SCREENING Never done DTAP,TDAP,TD(1 - Tdap) Never done HPV TESTING Never done DEPRESSION ASSESSMENT Never done INFLUENZA(1) due on 02/19/2023 HPV VACCINE Aged Out ASSESSMENT/PLAN: 1. Adult ADHD - ICD9: 314.01, ICD10: F90.9 - stable on current regime PDMP website checked and validated. All prescriptions have been APPROPRIATELY filled. No suspicious activity was identified. 12/28/2022 by Marky Lux APRN.TIRE LAYER - follow-up in 3 months with labs prior for physical Marky Lux APRN.TIRE LAYER Prescription instructions reviewed with patient as applicable. Patient advised if symptoms do not improve or if symptoms worsen sooner, to contact their primary care physician. Potential red flag symptoms discussed with the patient. Reviewed appropriate action plan to take if red flag symptoms occur. Patient agreeable to treatment plan. I spent a total of 20 minutes on the date of the service which included preparing to see the patient, [id number] patient care, completing clinical documentation, obtaining and/or reviewing separately obtained history, performing a medically appropriate examination, counseling and educating the patient/family/caregiver, and ordering medications, tests, or procedures. [facility] 12-28-2022 History of Presen t illness Narrative 12/28/2022 Patient presents with: Established Patient SUBJECTIVE: This is a 32 year old that is here today for Above Complaints. Since last office visit has been in good health without ER visits or hospitalizations. ADD: Current Treatment: Rasheed Feels treatment is working well: Yes. Weight loss: No. Insomnia: No. GASTROENTEROLOGY complaints: No. Tremor: No. Mood disorder: No. Chest pain/Palpitations: No. Aware of risks associated with controlled substance use: Yes. Hx of misuse/abuse/diversion of meds: Yes. PAST MEDICAL HISTORY Diagnosis Date ADHD (attention deficit hyperactivity disorder) History of tobacco abuse IUD (intrauterine device) in place Mirena 08/2016, [employer] [facility] PTSD (post-traumatic stress disorder) Scoliosis ALLERGIES Patient has no known allergies. MEDICATIONS Current Outpatient Medications Medication Sig spironolactone (ALDACTONE) 100 mg tablet Take 1 tablet by mouth once daily. lisdexamfetamine (VYVANSE) 60 mg capsule Take 1 capsule by mouth once daily for 30 days. norgestimate 0.25 mg-ethinyl estradiol 35 mcg (SPRINTEC) 0.25-35 mg-mcg per tablet Take 1 tablet by mouth once daily. No current facility-administered medications for this visit. Medications and allergies reviewed by this provider. SOCIAL HISTORY Social History Tobacco Use Smoking status: Former Packs/day: 0.50 Years: 10.00 Total pack years: 5.00 Types: Cigarettes Smokeless tobacco: Never Tobacco comments: up to 3-5 cigarettes per day Substance Use Topics Alcohol use: Yes Comment: rarely Drug use: No REVIEW OF SYSTEMS All other reviewed and negative other than HPI. OBJECTIVE: BP 118/78 Pulse 98 Resp 16 Ht 162.6 cm (5' 4 ) Wt 91.2 kg (201 lb) LMP 12/04/2022 (Approximate) BMI 34.50 kg/m . Vital signs reviewed by this provider. APPEARANCE Well appearing, alert, in no acute distress, well-hydrated, well nourished. HEART RRR with normal S1 and S2, no murmurs, no gallops, no JVD appreciated LUNG clear to auscultation. No wheezes, rhonchi or rales EXTREMITIES Extremities normal, No deformities, No skin discoloration, and No edema SKIN Skin color, texture, turgor normal, no suspicious rashes or lesions to exposed skin HEPATITIS B(1 of 3 - 3-dose series) Never done COVID-19 VACCINE(1) Never done HEPATITIS C SCREENING Never done HIV SCREENING Never done DTAP,TDAP,TD(1 - Tdap) Never done HPV TESTING Never done DEPRESSION ASSESSMENT Never done INFLUENZA(1) due on 02/19/2023 HPV VACCINE Aged Out ASSESSMENT/PLAN: 1. Adult ADHD - ICD9: 314.01, ICD10: F90.9 - stable on current regime PDMP website checked and validated. All prescriptions have been APPROPRIATELY filled. No suspicious activity was identified. 12/28/2022 by Marky Lux APRN.CNP - follow-up in 3 months with labs prior for physical Marky Lux APRN.MAKENZIE Prescription instructions reviewed with patient as applicable. Patient advised if symptoms do not improve or if symptoms worsen sooner, to contact their primary care physician. Potential red flag symptoms discussed with the patient. Reviewed appropriate action plan to take if red flag symptoms occur. Patient agreeable to treatment plan. I spent a total of 20 minutes on the date of the service which included preparing to see the patient, [id number] patient care, completing clinical documentation, obtaining and/or reviewing separately obtained history, performing a medically appropriate examination, counseling and educating the patient/family/caregiver, and ordering medications, tests, or procedures. documented in this encounter [facility] 12-17-2022 Miscellaneous Notes PDMP website checked and validated. All prescriptions have been APPROPRIATELY filled. No suspicious activity was identified. 12/17/2022 by Mikael Paul MD Pt has 6 month follow up appt on 12/28 with [facility]. Pt needs a 1 month refill, to make it to appt. Debo Brooks LPN Due for 6 month follow up as of 12/21. Needs to schedule OV. Patient phones requesting refills as follows: Requested Prescriptions Pending Prescriptions Disp Refills lisdexamfetamine (VYVANSE) 60 mg capsule 30 capsule 0 Sig: Take 1 capsule by mouth once daily for 30 days. MATTI-06/23/22 Labs-06/23/22 NOV-none Please review and advise. Debo Brooks LPN documented in this encounter [facility] 11-17-2022 Miscellaneous Notes PDMP website checked and validated. All prescriptions have been APPROPRIATELY filled. No suspicious activity was identified. 11/17/2022 by Marky Lux APRN.TIRE LAYER Patient has been identified by name and date of : Yes Requested Prescriptions Pending Prescriptions Disp Refills lisdexamfetamine (VYVANSE) 60 mg capsule 30 capsule 0 Sig: Take 1 capsule by mouth once daily for 30 days. RX INSTRUCTIONS: Patient aware RX will be sent to pharmacy. No need to notify patient. Patient last office visit: 06/23/22 Patient next office visit: none scheduled Jocelyn Kohli MA documented in this encounter [facility] 10-14-2022 Miscellaneous Notes TC to patient who verbalized understanding. Nothing further at this time. [facility] [place] PDMP website checked and validated. All prescriptions have been APPROPRIATELY filled. No suspicious activity was identified. 10/14/2022 by Mikael Paul MD Patient phones requesting refills as follows: Requested Prescriptions Pending Prescriptions Disp Refills lisdexamfetamine (VYVANSE) 60 mg capsule 30 capsule 0 Sig: Take 1 capsule by mouth once daily for 30 days. MATTI 06/23/22 NOV no upcoming appt Please review and advise. Cedric Velez LPN documented in this encounter [facility] 09-17-2022 Miscellaneous Notes PDMP website checked and validated. All prescriptions have been APPROPRIATELY filled. No suspicious activity was identified. 09/17/2022 by Mikael Paul MD Patient has been identified by name and date of : Yes, Provider Dr. Paul Date 09/17/22 Time 10:17 am Patient phones for refill(s): Requested Prescriptions Pending Prescriptions Disp Refills lisdexamfetamine (VYVANSE) 60 mg capsule 30 capsule 0 Sig: Take 1 capsule by mouth once daily for 30 days. Date of last office visit in primary care: 06/23/22 Last 2 Encounter Wt Readings: Date: Wt: 06/23/2022 88.9 kg (196 lb) 01/02/2022 88.3 kg (194 lb 9.6 oz) Previous labs/tests for medication: Not applicable Thank you. Mila Kelley LPN documented in this encounter [facility] 08-20-2022 Miscellaneous Notes PDMP website checked and validated. All prescriptions have been APPROPRIATELY filled. No suspicious activity was identified. 08/20/2022 by Mikael Paul MD Patient phones requesting refills as follows: Requested Prescriptions Pending Prescriptions Disp Refills lisdexamfetamine (VYVANSE) 60 mg capsule 30 capsule 0 Sig: Take 1 capsule by mouth once daily for 30 days. MATTI-06/23/22 Labs-06/23/22 NOV-none med filled 07/21/22 Please review and advise. Debo Brooks LPN documented in this encounter [facility] 07-21-2022 Miscellaneous Notes [facility] website checked and validated. All prescriptions have been APPROPRIATELY filled. No suspicious activity was identified. 07/21/2022 by Marky Lux APRN.TIRE LAYER Patient phones requesting refills as follows: Requested Prescriptions Pending Prescriptions Disp Refills lisdexamfetamine (VYVANSE) 60 mg capsule 30 capsule 0 Sig: Take 1 capsule by mouth once daily for 30 days. MATTI 06/23/2022 No upcoming appointment scheduled. Please review and advise. Maty Stein LPN documented in this encounter [facility] 06-23-2022 Note HNO ID: [id number] Author: Mikael Paul MD Service: ? Author Type: Physician Type: Progress Notes Filed: 06/23/2022 11:26 AM Note Text: Chief Complaint Patient presents with: Follow Up HPI Sienna Joyce is a 31 year old female who presents here today for ADHD follow up. ADD: Current Treatment: Vyvanse 60 mg daily. Takes on weekends too. Feels treatment is working well: Yes. Weight loss: No. Insomnia: No. GASTROENTEROLOGY complaints: No. Tremor: No. Mood disorder: No. Chest pain/Palpitations: No. Aware of risks associated with controlled substance use: Yes. Hx of misuse/abuse/diversion of meds: No. Last dose was this morning. Denies illicit drug use with this regimen. Mirena removed on 04/2022 and is requesting alternative control. Would like OCP. Using condoms since she has been off the Mirena. Periods regular. LMP 06/07/2022. Hoping OCP will help some with acne around time of her period. Past medical history, appointments, medications, allergies reviewed. Previous Medical History PAST MEDICAL HISTORY Diagnosis Date ADHD (attention deficit hyperactivity disorder) History of tobacco abuse IUD (intrauterine device) in place Mirena 08/2016, [employer] [facility] PTSD (post-traumatic stress disorder) Scoliosis Previous Surgical History PAST SURGICAL HISTORY Procedure Laterality Date SECTION HX 2016 LAPAROSCOPIC CHOLECYSTECTOMY 2014 Family History FAMILY HISTORY Adopted: Yes Patient Allergies ALLERGIES No Known Allergies Current Medications Current Outpatient Medications on File Prior to Visit Medication Sig lisdexamfetamine (VYVANSE) 60 mg capsule Take 1 capsule by mouth once daily for 30 days. levonorgestrel (MIRENA INTRAUTERINE) by INTRAUTERINE route. No current facility-administered medications on file prior to visit. Social History Social History Tobacco Use Smoking status: Former Packs/day: 0.50 Years: 10.00 Pack years: 5.00 Types: Cigarettes Smokeless tobacco: Never Tobacco comments: up to 3-5 cigarettes per day Substance Use Topics Alcohol use: Yes Comment: rarely Drug use: No Review of Symptoms REVIEW OF SYSTEMS See HPI EXAM: BP 122/74 Pulse 100 Resp 16 Wt 88.9 kg (196 lb) LMP 06/09/2022 (Approximate) SpO2 95% General Appearance: Well appearing, alert, in no acute distress, well-hydrated, well nourished.. Skin: Skin color, texture, turgor normal, no suspicious rashes or lesions. Lungs: Lungs clear to auscultation. No wheezing, rhonchi, rales.. Heart: Negative findings: no murmurs, clicks, or gallops, Positive findings: tachycardia. Extremities: No deformities, edema, skin discoloration, clubbing or cyanosis. Good capillary refill. . Health Maintenance List HEPATITIS B(1 of 3 - 3-dose series) Never done COVID-19 VACCINE(1) Never done HEPATITIS C SCREENING Never done HIV SCREENING Never done DTAP,TDAP,TD(1 - Tdap) Never done PAP TESTING Never done HPV TESTING Never done INFLUENZA(1) due on 02/19/2022 DEPRESSION ASSESSMENT Never done Data reviewed Component Latest Ref Rng AND Units 12/30/2020 Cannabinoid Quant, Urine <16 ng/mL <16 Benzoylecognine Quant, Urine <24 ng/mL <24 6-Acetylmorphine Quant, Urine <5 ng/mL <5 Amphetamine Quant, Urine <5 ng/mL >5,365 (H) Methamphetamine Quant, Urine <8 ng/mL <8 Buprenorphine Quant, Urine <20 ng/mL <20 Norbuprenorphine Quant, Urine <20 ng/mL <20 Methadone Quant, Urine <16 ng/mL <16 EDDP Quant, Urine <6 ng/mL <6 Tramadol Quant, Urine <25 ng/mL <25 Desmethyltramadol Quant, Urine <20 ng/mL <20 Fentanyl Quant, Urine <6 ng/mL <6 Norfentanyl Quant, Urine <6 ng/mL <6 Codeine Quant, Urine <11 ng/mL <11 Morphine Quant, Urine <10 ng/mL <10 Dihydrocodeine Quant, Urine <5 ng/mL <5 Hydrocodone Quant, Urine <8 ng/mL <8 Oxycodone Quant, Urine <10 ng/mL <10 Hydromorphone Quant, Urine <5 ng/mL <5 Oxymorphone Quant, Urine <5 ng/mL <5 Creatinine,Ur Pain [place] 42.2 - 237.9 mg/dL 178.5 Urine pH, Pain [place] 4.5 - 8.0 7.0 Specific [place],Ur Pain Haines 1.002 - 1.030 1.019 Oxidants,Ur <200 mg/L <38 Specimen Validity Nitrites <51 mg/L <50 Specimen Validity Chromate <50 mg/L <10 Specimen Validity Quality Specimen quality results within acceptable limits. Note,Ur Pain [place] This test is for Medical use only. Phencyclidine Negative Negative Benzodiazepines Urine Negative Negative Cocaine Urine Negative Negative Amphetamines Negative Preliminary positive. (A) Cannabinoids, Urine Negative Negative Opiates Negative Negative Barbiturates Negative Negative Ethanol, Urine <11 mg/dL <11 Oxycodone, Urine Negative Negative ASSESSMENT/PLAN: 1. Adult ADHD - ICD9: 314.01, ICD10: F90.9 (primary diagnosis) Controlled on current regimen. Update controlled substance agreement and will check urine drug screen. PDMP website checked and validated. All prescriptions have been APPROPRIATELY filled. No suspicious activity was identi (more content not included)... [facility] 06-23-2022 History of Presen t illness Narrative Chief Complaint Patient presents with: Follow Up HPI Sienna Joyce is a 31 year old female who presents here today for ADHD follow up. ADD: Current Treatment: Vyvanse 60 mg daily. Takes on weekends too. Feels treatment is working well: Yes. Weight loss: No. Insomnia: No. GASTROENTEROLOGY complaints: No. Tremor: No. Mood disorder: No. Chest pain/Palpitations: No. Aware of risks associated with controlled substance use: Yes. Hx of misuse/abuse/diversion of meds: No. Last dose was this morning. Denies illicit drug use with this regimen. Mirena removed on 04/2022 and is requesting alternative control. Would like OCP. Using condoms since she has been off the Mirena. Periods regular. LMP 06/07/2022. Hoping OCP will help some with acne around time of her period. Past medical history, appointments, medications, allergies reviewed. Previous Medical History PAST MEDICAL HISTORY Diagnosis Date ADHD (attention deficit hyperactivity disorder) History of tobacco abuse IUD (intrauterine device) in place Mirena 08/2016, [employer] [facility] PTSD (post-traumatic stress disorder) Scoliosis Previous Surgical History PAST SURGICAL HISTORY Procedure Laterality Date SECTION HX 2016 LAPAROSCOPIC CHOLECYSTECTOMY 2015 Family History FAMILY HISTORY Adopted: Yes Patient Allergies ALLERGIES No Known Allergies Current Medications Current Outpatient Medications on File Prior to Visit Medication Sig lisdexamfetamine (VYVANSE) 60 mg capsule Take 1 capsule by mouth once daily for 30 days. levonorgestrel (MIRENA INTRAUTERINE) by INTRAUTERINE route. No current facility-administered medications on file prior to visit. Social History Social History Tobacco Use Smoking status: Former Packs/day: 0.50 Years: 10.00 Pack years: 5.00 Types: Cigarettes Smokeless tobacco: Never Tobacco comments: up to 3-5 cigarettes per day Substance Use Topics Alcohol use: Yes Comment: rarely Drug use: No Review of Symptoms REVIEW OF SYSTEMS See HPI EXAM: BP 122/74 Pulse 100 Resp 16 Wt 88.9 kg (196 lb) LMP 06/09/2022 (Approximate) SpO2 95% General Appearance: Well appearing, alert, in no acute distress, well-hydrated, well nourished.. Skin: Skin color, texture, turgor normal, no suspicious rashes or lesions. Lungs: Lungs clear to auscultation. No wheezing, rhonchi, rales.. Heart: Negative findings: no murmurs, clicks, or gallops, Positive findings: tachycardia. Extremities: No deformities, edema, skin discoloration, clubbing or cyanosis. Good capillary refill. . Health Maintenance List HEPATITIS B(1 of 3 - 3-dose series) Never done COVID-19 VACCINE(1) Never done HEPATITIS C SCREENING Never done HIV SCREENING Never done DTAP,TDAP,TD(1 - Tdap) Never done PAP TESTING Never done HPV TESTING Never done INFLUENZA(1) due on 02/19/2022 DEPRESSION ASSESSMENT Never done Data reviewed Component Latest Ref Rng & Units 12/30/2020 Cannabinoid Quant, Urine <16 ng/mL <16 Benzoylecognine Quant, Urine <24 ng/mL <24 6-Acetylmorphine Quant, Urine <5 ng/mL <5 Amphetamine Quant, Urine <5 ng/mL >5,365 (H) Methamphetamine Quant, Urine <8 ng/mL <8 Buprenorphine Quant, Urine <20 ng/mL <20 Norbuprenorphine Quant, Urine <20 ng/mL <20 Methadone Quant, Urine <16 ng/mL <16 EDDP Quant, Urine <6 ng/mL <6 Tramadol Quant, Urine <25 ng/mL <25 Desmethyltramadol Quant, Urine <20 ng/mL <20 Fentanyl Quant, Urine <6 ng/mL <6 Norfentanyl Quant, Urine <6 ng/mL <6 Codeine Quant, Urine <11 ng/mL <11 Morphine Quant, Urine <10 ng/mL <10 Dihydrocodeine Quant, Urine <5 ng/mL <5 Hydrocodone Quant, Urine <8 ng/mL <8 Oxycodone Quant, Urine <10 ng/mL <10 Hydromorphone Quant, Urine <5 ng/mL <5 Oxymorphone Quant, Urine <5 ng/mL <5 Creatinine,Ur Pain [place] 42.2 - 237.9 mg/dL 178.5 Urine pH, Pain [place] 4.5 - 8.0 7.0 Specific [place],Ur Pain Haines 1.002 - 1.030 1.019 Oxidants,Ur <200 mg/L <38 Specimen Validity Nitrites <51 mg/L <50 Specimen Validity Chromate <50 mg/L <10 Specimen Validity Quality Specimen quality results within acceptable limits. Note,Ur Pain [place] This test is for Medical use only. Phencyclidine Negative Negative Benzodiazepines Urine Negative Negative Cocaine Urine Negative Negative Amphetamines Negative Preliminary positive. (A) Cannabinoids, Urine Negative Negative Opiates Negative Negative Barbiturates Negative Negative Ethanol, Urine <11 mg/dL <11 Oxycodone, Urine Negative Negative ASSESSMENT/PLAN: 1. Adult ADHD - ICD9: 314.01, ICD10: F90.9 (primary diagnosis) Controlled on current regimen. Update controlled substance agreement and will check urine drug screen. PDMP website checked and validated. All prescriptions have been APPROPRIATELY filled. No suspicious activity was identified. 06/23/2022 by Mikael Paul MD F/u in 3-6 months - TOX SCREEN ROUT UR - PAIN PANEL, UR QUANT - LISDEXAMFETAMINE 60 MG CAPSULE - PAIN PANEL, UR QUANT - SPECIMEN VALIDITY, URINE 2. Tachycardia - ICD9: 785.0, ICD10: R00.0 Borderline elevated. Patient has apple watch. Will check resting HR at home and call if >100. 3. control counseling - ICD9: V25.09, ICD10: Z30.09 Urine testing negative. Start Sprintec. Condom use for 2 weeks discussed. Red flags for re-assessment reviewed with patient in detail. - NORGESTIMATE 0.25 MG-ETHINYL ESTRADIOL 33 MCG TABLET - HCG QUAL UR B/O 4. Controlled substance agreement signed - ICD9: V58.69, ICD10: Z79.899 Mikael Paul MD documented in this encounter [facility] 05-22-2022 Miscellaneous Notes Notified via [employer]. [place] PDMP website checked and validated. All prescriptions have been APPROPRIATELY filled. No suspicious activity was identified. 05/22/2022 by Mikael Paul MD Keep scheduled OV this month. Patient phones requesting refills as follows: Requested Prescriptions Pending Prescriptions Disp Refills lisdexamfetamine (VYVANSE) 60 mg capsule 30 capsule 0 Sig: Take 1 capsule by mouth once daily for 30 days. MATTI-01/02/22 Labs-12/30/20 NOV-06/18/22 med filled 04/24/22 Please review and advise. Debo Brooks LPN documented in this encounter [facility] 04-29-2022 Miscellaneous Notes Pt notified of results via [employer]. [place] Left a message for pt to call the office and ask to speak to a nurse. Mila Kelley LPN PDMP website checked and validated. All prescriptions have been APPROPRIATELY filled. No suspicious activity was identified. 04/24/2022 by Mikael Paul MD Needs to schedule f/u for June. Patient phones requesting refills as follows: Requested Prescriptions Pending Prescriptions Disp Refills lisdexamfetamine (VYVANSE) 60 mg capsule 30 capsule 0 Sig: Take 1 capsule by mouth once daily for 30 days. MATTI 01/02/22 NOV no upcoming appt noted Please review and advise. Guadalupe Mcfarland LPN documented in this encounter [facility] 03-27-2022 Miscellaneous Notes PDMP website checked and validated. All prescriptions have been APPROPRIATELY filled. No suspicious activity was identified. 03/27/2022 by Marky Lux APRN.[employer] Sent a kSARIA reminder to call the office to schedule her 6 month follow up in June 2022. Mila Kelley LPN Patient has been identified by name and date of : Yes Patient phones for refill(s): Requested Prescriptions Pending Prescriptions Disp Refills lisdexamfetamine (VYVANSE) 60 mg capsule 30 capsule 0 Sig: Take 1 capsule by mouth once daily for 30 days. Date of last office visit in primary care: 01/02/22 Last 2 Encounter Wt Readings: Date: Wt: 01/02/2022 88.3 kg (194 lb 9.6 oz) 06/25/2021 88.5 kg (195 lb) Previous labs/tests for medication: Not applicable Thank you. Mila Kelley LPN documented in this encounter [facility] 02-27-2022 Miscellaneous Notes [facility] website checked and validated. All prescriptions have been APPROPRIATELY filled. No suspicious activity was identified. 02/27/2022 by Marky Lux APRN.[employer] Matti-- 01/02/22 next-- none made Last refill--01/28/22 30 with 0 refills Last labs-- 12/30/20 documented in this encounter [facility] 01-28-2022 Miscellaneous Notes [facility] website checked and validated. All prescriptions have been APPROPRIATELY filled. No suspicious activity was identified. 01/28/2022 by Mikael Paul MD Last office visit 01/02/2022 Next appointment scheduled n/a Last labs 12/30/20 tox screen Patient phones requesting refills as follows: Requested Prescriptions Pending Prescriptions Disp Refills lisdexamfetamine (VYVANSE) 60 mg capsule 30 capsule 0 Sig: Take 1 capsule by mouth once daily for 30 days. Please review and advise. Ashley Chen LPN documented in this encounter [facility] 01-02-2022 History of Presen t illness Narrative Chief Complaint Patient presents with: infected tooth HPI Sienna Joyce is a 31 year old female who presents here today for Above Complaints.. Patient states that she has been having pain on left bottom wisdom tooth which started about 2-3 days ago. Treating with tylenol which does reduce her pain. Worried it may be infection. Denies fever/chills, drainage, bleeding, Has appointment with dentist on Wednesday. ADD: Current Treatment: Vyvanse 60 mg Feels treatment is working well: Yes. Weight loss: No. Insomnia: No. GASTROENTEROLOGY complaints: No. Tremor: No. Mood disorder: No. Chest pain/Palpitations: No. Aware of risks associated with controlled substance use: Yes. Hx of misuse/abuse/diversion of meds: Yes. Past medical history, appointments, medications, allergies reviewed. Previous Medical History PAST MEDICAL HISTORY Diagnosis Date ADHD (attention deficit hyperactivity disorder) History of tobacco abuse IUD (intrauterine device) in place Mirena 08/2016, [employer] [facility] PTSD (post-traumatic stress disorder) Scoliosis Previous Surgical History PAST SURGICAL HISTORY Procedure Laterality Date SECTION HX 2016 LAPAROSCOPIC CHOLECYSTECTOMY 2014 Family History FAMILY HISTORY Adopted: Yes Patient Allergies ALLERGIES No Known Allergies Current Medications Current Outpatient Medications on File Prior to Visit Medication Sig lisdexamfetamine (VYVANSE) 60 mg capsule Take 1 capsule by mouth once daily for 30 days. levonorgestrel (MIRENA INTRAUTERINE) by INTRAUTERINE route. No current facility-administered medications on file prior to visit. Social History Social History Tobacco Use Smoking status: Former Smoker Packs/day: 0.50 Years: 10.00 Pack years: 5.00 Smokeless tobacco: Never Used Tobacco comment: up to 3-5 cigarettes per day Substance Use Topics Alcohol use: Yes Comment: rarely Drug use: No Review of Symptoms REVIEW OF SYSTEMS See HPI EXAM: BP 130/72 Pulse 97 Temp 36.8 C (98.2 F) Resp 16 Wt 88.3 kg (194 lb 9.6 oz) LMP (LMP Unknown) SpO2 97% General Appearance: Well appearing, alert, in no acute distress, well-hydrated, well nourished.. Skin: Skin color, texture, turgor normal, no suspicious rashes or lesions. Oropharynx: Fractured left bottom wisdom tooth without purulent drainage, gum swelling, abscess, erythema, bleeding. Neck: Supple, no adenopathy; thyroid symmetric, normal size, no bruits. Health Maintenance List COVID-19 VACCINE(1) Never done HEPATITIS C SCREENING Never done HIV SCREENING Never done DTAP,TDAP,TD(1 - Tdap) Never done PAP TESTING Never done HPV TESTING Never done DEPRESSION SCREENING due on 12/30/2021 INFLUENZA(1) due on 02/19/2022 ASSESSMENT/PLAN: 1. Pain, dental - ICD9: 525.9, ICD10: K08.89 (primary diagnosis) No infection today, but will give abx in case she develops one prior to dentist visit. Discussed pain control with OTC analgesics, avoid chewing on this side, clean out around gums regularly with tooth brush. Red flags for re-assessment reviewed with patient in detail. 2. Adult ADHD - ICD9: 314.01, ICD10: F90.9 Controlled on current regimen. Controlled substance agreement signed. F/u in 6 months. Mikael Paul MD documented in this encounter [facility] 12-01-2021 Miscellaneous Notes Notified via [employer]. [place] PDMP website checked and validated. All prescriptions have been APPROPRIATELY filled. No suspicious activity was identified. 11/28/2021 by Mikael Paul MD Patient due for 6 month follow up in December. Please call to schedule OV. Patient has been identified by name and date of : Yes Pending Prescriptions Disp Refills LISDEXAMFETAMINE 60 MG CAPSULE 30 capsule 0 Sig: Take 1 capsule by mouth once daily for 30 days. VANDANA Class: C-II CA: No RX INSTRUCTIONS: Patient aware RX will be sent to pharmacy. No need to notify patient. Arti Noriega MA Matti: 06/2021 Nov; No appointment scheduled Last refill: 10/27/2021 documented in this encounter [facility] 10-27-2021 Miscellaneous Notes PDMP website checked and validated. All prescriptions have been APPROPRIATELY filled. No suspicious activity was identified. 10/27/2021 by Marky Lux APRN.[employer] matti-- 06/25/21 Next-- None on books Last refill--09/26/21 30 with 0 refills Last labs 12/30/20 documented in this encounter [facility] Diagnosis Adult ADHD Attention deficit disorder with hyperactivity [facility] Diagnosis Pain, dental- Primary Unspecified disorder of the teeth and supporting structures Adult ADHD Attention deficit disorder with hyperactivity [facility] Diagnosis Adult ADHD Attention deficit disorder with hyperactivity [facility] Diagnosis Adult ADHD Attention deficit disorder with hyperactivity [facility] Diagnosis Adult ADHD- Primary Attention deficit disorder with hyperactivity Tachycardia Tachycardia, unspecified control counseling General counseling for initiation of other contraceptive measures Controlled substance agreement signed Encounter for long-term (current) use of other medications [facility] Diagnosis Adult ADHD Attention deficit disorder with hyperactivity [facility] Diagnosis Adult ADHD- Primary Attention deficit disorder with hyperactivity [facility] Diagnosis control counseling General counseling for initiation of other contraceptive measures Adult ADHD Attention deficit disorder with hyperactivity [facility] Diagnosis Adult ADHD Attention deficit disorder with hyperactivity [facility] Diagnosis Adult ADHD Attention deficit disorder with hyperactivity [facility] Diagnosis Annual physical exam- Primary Routine general medical examination at a health care facility Class 1 obesity due to excess calories without serious comorbidity with body mass index (BMI) of 34.0 to 34.9 in adult Screening for cervical cancer Screening for malignant neoplasm of the cervix Adult ADHD Attention deficit disorder with hyperactivity [facility] Diagnosis Adult ADHD Attention deficit disorder with hyperactivity [facility] Diagnosis Adult ADHD Attention deficit disorder with hyperactivity documented in this encounter [facility] Reason for Referral Specialty Diagnoses / Procedures Referred By Iliana hong Referred To Contact Diagnoses Adult ADHD Mikael Paul MD [address] [place] [address] Referral ID Status Reason Start Date Expiration Date Visits Re quested Visits Authorized [id number] Closed 1 1 Specialty Diagnoses / Procedures Referred By Iliana hong Referred To Contact Gynecology Diagnoses Screening for cervical cancer Procedures CONSULT TO GYNECOLOGY OFFICE/OUTPATIENT [facility] HIGH MDM 60-74 MINUTES Mikael Paul MD [address] [place] [address] Referral ID Status Reason Start Date Expiration Date Visits Requested Visits Authorized [id number] Authorized PCP Requested Referral Auto-Generate d Referral 3 03/29/2024 1 1 Referral ID Status Reason Start Date Expiration Date Visits Re quested Visits Authorized [id number] Closed 1 1 Referral ID Status Reason Start Date Expiration Date Visits Re quested Visits Authorized [id number] Closed 1 1 Referral ID Status Reason Start Date Expiration Date Visits Re quested Visits Authorized [id number] Closed 1 1 Summary Purpose Family History No Family History Records Found Advance Directives No Advanced Directives Records Found Additional Source Comments Source Comments (unrecognize d section and content) In the event this informatio n is protected by the Federal Confidentiality of Alcohol and Drug Abuse Patient Records regulations: The Federal rules restrict any use of the information to criminally investigate or prosecute any alcohol or drug abuse patient.[facility] the event this information is protected by the Federal Confidentiality of Alcohol and Drug Abuse Patient Records regulations: The Federal rules restrict any use of the information to criminally investigate or prosecute any alcohol or drug abuse patient.[facility] the event this information is protected by the Federal Confidentiality of Alcohol and Drug Abuse Patient Records regulations: The Federal rules restrict any use of the information to criminally investigate or prosecute any alcohol or drug abuse patient.[facility] the event this information is protected by the Federal Confidentiality of Alcohol and Drug Abuse Patient Records regulations: The Federal rules restrict any use of the information to criminally investigate or prosecute any alcohol or drug abuse patient.[facility] the event this information is protected by the Federal Confidentiality of Alcohol and Drug Abuse Patient Records regulations: The Federal rules restrict any use of the information to criminally investigate or prosecute any alcohol or drug abuse patient.[facility] the event this information is protected by the Federal Confidentiality of Alcohol and Drug Abuse Patient Records regulations: The Federal rules restrict any use of the information to criminally investigate or prosecute any alcohol or drug abuse patient.[facility] the event this information is protected by the Federal Confidentiality of Alcohol and Drug Abuse Patient Records regulations: The Federal rules restrict any use of the information to criminally investigate or prosecute any alcohol or drug abuse patient.[facility] the event this information is protected by the Federal Confidentiality of Alcohol and Drug Abuse Patient Records regulations: The Federal rules restrict any use of the information to criminally investigate or prosecute any alcohol or drug abuse patient.[facility] the event this information is protected by the Federal Confidentiality of Alcohol and Drug Abuse Patient Records regulations: The Federal rules restrict any use of the information to criminally investigate or prosecute any alcohol or drug abuse patient.[facility] the event this information is protected by the Federal Confidentiality of Alcohol and Drug Abuse Patient Records regulations: The Federal rules restrict any use of the information to criminally investigate or prosecute any alcohol or drug abuse patient.[facility] the event this information is protected by the Federal Confidentiality of Alcohol and Drug Abuse Patient Records regulations: The Federal rules restrict any use of the information to criminally investigate or prosecute any alcohol or drug abuse patient.[facility] the event this information is protected by the Federal Confidentiality of Alcohol and Drug Abuse Patient Records regulations: The Federal rules restrict any use of the information to criminally investigate or prosecute any alcohol or drug abuse patient.[facility] the event this information is protected by the Federal Confidentiality of Alcohol and Drug Abuse Patient Records regulations: The Federal rules restrict any use of the information to criminally investigate or prosecute any alcohol or drug abuse patient.[facility] the event this information is protected by the Federal Confidentiality of Alcohol and Drug Abuse Patient Records regulations: The Federal rules restrict any use of the information to criminally investigate or prosecute any alcohol or drug abuse patient.[facility] the event this information is protected by the Federal Confidentiality of Alcohol and Drug Abuse Patient Records regulations: The Federal rules restrict any use of the information to criminally investigate or prosecute any alcohol or drug abuse patient.[facility] the event this information is protected by the Federal Confidentiality of Alcohol and Drug Abuse Patient Records regulations: The Federal rules restrict any use of the information to criminally investigate or prosecute any alcohol or drug abuse patient.[facility] the event this information is protected by the Federal Confidentiality of Alcohol and Drug Abuse Patient Records regulations: The Federal rules restrict any use of the information to criminally investigate or prosecute any alcohol or drug abuse patient.[facility] the event this information is protected by the Federal Confidentiality of Alcohol and Drug Abuse Patient Records regulations: The Federal rules restrict any use of the information to criminally investigate or prosecute any alcohol or drug abuse patient.[facility] the event this information is protected by the Federal Confidentiality of Alcohol and Drug Abuse Patient Records regulations: The Federal rules restrict any use of the information to criminally investigate or prosecute any alcohol or drug abuse patient.[facility] the event this information is protected by the Federal Confidentiality of Alcohol and Drug Abuse Patient Records regulations: The Federal rules restrict any use of the information to criminally investigate or prosecute any alcohol or drug abuse patient.[facility] the event this information is protected by the Federal Confidentiality of Alcohol and Drug Abuse Patient Records regulations: The Federal rules restrict any use of the information to criminally investigate or prosecute any alcohol or drug abuse patient.[facility] the event this information is protected by the Federal Confidentiality of Alcohol and Drug Abuse Patient Records regulations: The Federal rules restrict any use of the information to criminally investigate or prosecute any alcohol or drug abuse patient.[facility] the event this information is protected by the Federal Confidentiality of Alcohol and Drug Abuse Patient Records regulations: The Federal rules restrict any use of the information to criminally investigate or prosecute any alcohol or drug abuse patient.[facility] the event this information is protected by the Federal Confidentiality of Alcohol and Drug Abuse Patient Records regulations: The Federal rules restrict any use of the information to criminally investigate or prosecute any alcohol or drug abuse patient.[facility] Reason for Visit (unrecogniz ed section and content) Reason Onset Date Comments Refill Request 11/27/2021 Reason Comments infected tooth Reason Onset Date Comments Refill Request 01/28/2022 Reason Onset Date Comments Refill Request 02/26/2022 Reason Onset Date Comments Refill Request 03/27/2022 Reason Onset Date Comments Refill Request 04/23/2022 Reason Onset Date Comments Refill Request 05/22/2022 Reason Comments Follow Up Reason Onset Date Comments Refill Request 07/20/2022 Reason Onset Date Comments Refill Request 08/20/2022 Reason Onset Date Comments Refill Request 09/17/2022 Reason Onset Date Comments Refill Request 10/14/2022 Reason Onset Date Comments Refill Request 11/17/2022 Reason Onset Date Comments Refill Request 12/17/2022 Reason Comments Established Patient Reason Onset Date Comments Refill Request 02/16/2023 Reason Onset Date Comments Refill Request 02/16/2023 Refill Request 02/19/2023 Reason Comments Medication Problem Reason Comments Physical Reason Onset Date Comments Refill Request 04/13/2023 Reason Onset Date Comments Refill Request 04/30/2023 Care Teams (unrecognized sec tion and content) Power Supply Engineer Relationship Specialty Start Date End Date Mikael Paul MD [address] [place] [address] PCP - General Family Practice 11/15/18 Power Supply Engineer Relationship Specialty Start Date End Date Mikael Paul MD [address] [place] [address] PCP - General Family Practice 11/15/18 Power Supply Engineer Relationship Specialty Start Date End Date Mikael Paul MD [address] [place] [address] PCP - General Family Medicine 11/15/18 Power Supply Engineer Relationship Specialty Start Date End Date Mikael Paul MD [address] [place] [address] PCP - General Family Medicine 11/15/18 Power Supply Engineer Relationship Specialty Start Date End Date Mikael Paul MD [address] [place] [address] PCP - General Family Medicine 11/15/18 Power Supply Engineer Relationship Specialty Start Date End Date Mikael Paul MD [address] [place] [address] PCP - General Family Medicine 11/15/18 Power Supply Engineer Relationship Specialty Start Date End Date Mikael Paul MD [address] [place] [address] PCP - General Family Medicine 11/15/18 Power Supply Engineer Relationship Specialty Start Date End Date Mikael Paul MD [address] [place] [address] PCP - General Family Medicine 11/15/18 Power Supply Engineer Relationship Specialty Start Date End Date Mikael Paul MD [address] [place] [address] PCP - General Family Medicine 11/15/18 Power Supply Engineer Relationship Specialty Start Date End Date Mikael Paul MD [address] [place] [address] PCP - General Family Medicine 11/15/18 Power Supply Engineer Relationship Specialty Start Date End Date Mikael Paul MD [address] [place] [address] PCP - General Family Medicine 11/15/18 Power Supply Engineer Relationship Specialty Start Date End Date Mikael Paul MD [address] [place] [address] PCP - General Family Medicine 11/15/18 Power Supply Engineer Relationship Specialty Start Date End Date Mikael Paul MD [address] [place] [address] PCP - General Family Medicine 11/15/18 Power Supply Engineer Relationship Specialty Start Date End Date Mikael Paul MD [address] [place] [address] PCP - General Family Medicine 11/15/18 Power Supply Engineer Relationship Specialty Start Date End Date Mikael Paul MD [address] [place] [address] PCP - General Family Medicine 11/15/18 Power Supply Engineer Relationship Specialty Start Date End Date Mikael Paul MD [address] [place] [address] PCP - General Family Medicine 11/15/18 INFORMATION SOURCE (unrecogn ized section and content) FOR RECORDS PERTAINING TO PATIENTS WHO ARE OR HAVE BEEN ENROLLED IN A CHEMICAL DEPENDENCY/SUBSTANCEABUSE PROGRAM, SOME INFORMATION MAY BE OMITTED. This clinical summary was aggregated from multiple sources. Caution should be exercised in using it in the provision of clinical care. This summary normalizes information from multiple sources, and as a consequence, information in this document may materially change the coding, format and clinical context of patient data. In addition, data may be omitted in some cases. CLINICAL DECISIONS SHOULD BE BASED ON THE PRIMARY CLINICAL RECORDS. [employer] provides no warranty or guarantee of the accuracy or completeness of information in this document.
[2023-07-05 16:48] LABS: Differential Indicated SCAN CRITERIA MET
[2023-07-05 16:50] LABS: Differential Comment SCANNED
[2023-07-05] MEDS: Famotidine 200 MG/20 ML MDV 20 MG in 0.9% Normal Saline (Pres. free 8 ML 300 MG IV (16:55)
[2023-07-05 17:04] LABS: AST(SGOT) 31 U/L (15-37); Alanine Aminotransfer ALT/SGPT 65 U/L (13-56); Albumin, Serum 3.6 g/dL (3.2-5.0); Alkaline Phosphatase 86 U/L (45-117); Anion Gap 8 (5-15); BUN 15 mg/dL (7-18); BUN/Creat Ratio 18.8 RATIO (10-20); Bilirubin, Direct 0.27 mg/dL (0.00-0.30); Calcium,Total 8.7 mg/dL (8.5-10.1); Chloride 107 mmol/L (98-107); EST Glomerular Filtration Rate 88 mL/min (>60); Est Glom Filt Rate - Afr Amer 106 mL/min (>60); Estimated Creatinine Clearance 109.32 ml/min; Globulin 4.4 g/dL (2.2-4.2); Glucose 107 mg/dL (74-106); Lipase 25 U/L (13-75); Potassium 3.9 mmol/L (3.5-5.1); Sodium Level 139 mmol/L (136-145); Troponin-I HS 3 pg/mL (3.0-54.0)
[2023-07-05 18:00] VITALS: RESP 18
[2023-07-05 18:21] LABS: Color, Urine Yellow (Yellow); Glucose, Dipstick Normal (Normal); Ketone-Dipstick 5 mg/dl (Negative); Leukocyte Esterase-Dipstick 25 /ul (Negative); Nitrite-Dipstick Negative (Negative); Occult Blood-Urine 25 /ul (Negative); Protein-Dipstick 30 mg/dl (Negative); Urine Clarity Clear (Clear); Urine Urobilinogen Normal (Normal)
[2023-07-05 18:22] LABS: Internal QC Validated? YES +Cl - CLEAR BKGD; Pregnancy, Urine Negative Negative; Urine Bilirubin Dipstick 1 mg/dL (Negative)
[2023-07-05 18:27] LABS: Red Blood Cells-Urine 0-5 SEEN /hpf (0-5); Squamous Epithelial Cells - UA 0-5 SEEN /hpf (5-10); White Blood Cells 0-5 SEEN /hpf (0-5)
[2023-07-05 19:44] VITALS: PULSE 80; RESP 16; TEMP 36.2
== END 2023-07-05 19:50 | disposition home or self-care (01) ==
PROVIDERS: Emergency Provider Emergency Medicine; PCP Family Medicine; Visit Provider Emergency Medicine
DX: R10.13 Epigastric pain (principal); D72.829 Elevated white blood cell count, unspecified; F17.210 Nicotine dependence, cigarettes, uncomplicated
CPT/HCPCS: 71045; 80048; 80076; 81001; 81025; 83690; 84484; 85025; 93005; 96365; 96375; 99283; J7030; A4216; J2405; J3490